=== PATIENT | female | born 1995 | race Caucasian/White ===

== ENCOUNTER 2017-07-21 16:02 | Emergency (ER) | payer OTHER ==
[~2017-07-21] VITALS: Ht 160 cm; Wt 109.3 kg
[2017-07-21 16:19] VITALS: BP 125/87
--- NOTE | 2017-07-21 16:27 | NUR ---
PT AMBULATES BACK TO THE LOBBY
--- NOTE | 2017-07-21 17:20 | NUR ---
PT AMBULATES TO BED 7
--- NOTE | 2017-07-21 17:38 | NUR ---
22/F c/o coughing blood this morning. Patient states she has had a cough and congestion x2 weeks. Lungs clear bilaterally x5 lobes. Respirations even and unlabored. Chest rises and falls symmetrically. Hx bronchitis. AOX4, no signs of respiratory distress. No active cough noted, no coughing up blood noted. Pt lying in bed supine, smiling with friend at bedside. No distress noted. VSS.
--- NOTE | 2017-07-21 18:25 | NUR ---
PT APPEARS TO BE RESTING COMFORTABLY. NO COUGH NOTED. NO DISTRESS NOTED. PATIENT IN ROOM LAUGHING WITH FRIEND AT BEDSIDE. AWAITING ERMD FOR EVAL.
--- NOTE | 2017-07-21 19:17 | NUR ---
Pt report given to Nelli CARRASQUILLO. Transfer of care at this time.
--- NOTE | 2017-07-21 19:27 | NUR ---
XRAY AT BEDSIDE
--- NOTE | 2017-07-21 20:14 | NUR ---
PATIENT REFUSED CT SCAN. ER MD DR MARIE MADE AWARE. WAITING FOR DISCHARGE PAPERWORK PER DR. SEBASTIAN
[2017-07-21 20:20] VITALS: BP 123/66
--- NOTE | 2017-07-21 21:03 | NUR ---
Patient discharged with v/s stable. Written and verbal after care instructions given and explained. Patient alert, oriented and verbalized understanding of instructions. Ambulatory with steady gait. All questions addressed prior to discharge. ID band removed. Patient advised to follow up with PMD. Rx of IBUPROFEN, AUGMENTIN, MUCINEX given. Patient educated on indication of medication including possible reaction and side effects. Opportunity to ask questions provided and answered.
== END 2017-07-21 21:03 | disposition home or self-care (01) ==
LOC: MED 16:02
DX: R05 Cough (principal); J34.89 Other specified disorders of nose and nasal sinuses
CPT/HCPCS: 71045; 99283